=== PATIENT | female | born 1970 | race Caucasian/White ===

== ENCOUNTER 2016-08-26 09:19 | Outpatient (CLI) | payer MEDICAID | END 2016-08-26 09:20 | disposition home or self-care (01) | DX: I10 Essential (primary) hypertension (principal) ==

== ENCOUNTER 2016-12-04 11:49 | Emergency (ER) | payer MEDICAID ==
[2016-12-04 12:02] VITALS: BP 136/91
[2016-12-04] MEDS ORDERED: AMOX/CLAV 875 MG/125 MG TABLET PO STA (12:19)
[2016-12-04] MEDS ORDERED: AMOX/CLAV 875 MG/125 MG TABLET PO ONE (12:21)
--- NOTE | 2016-12-04 12:22 | ED Physician Documentation ---
PD HPI ANIMAL BITE - Stated complaint Stated Complaint: CAT BITE - Chief complaint Chief Complaint: Wound - History obtained from History obtained from: Patient, Family - History of Present Illness Location of injury(ies): Left hand Details of the event: Cat, Bite, Scratch, Pet animal, Immunized Timing - onset: Last night Timing - duration: Days (1) Timing - details: Abrupt onset Pain level max: 4 Pain level now: 4 Improved by: Rest Worsened by: Moving, Palpating Associated symptoms: Swelling. No: Weakness, Numbness, Tingling Contributing factors: No: Immunocompromised, Asplenic, Anticoagulated, Un/under immunized Similar symptoms before: Has not had sx before Recently seen: Not recently seen Review of Systems Constitutional: denies: Fever, Chills GI: denies: Nausea, Vomiting, Diarrhea (r) Skin: denies: Rash Musculoskeletal: denies: Neck pain, Back pain Neurologic: denies: Headache PD PAST MEDICAL HISTORY - Past Medical History Past Medical History: Yes Cardiovascular: None Respiratory: None, Other Neuro: None Endocrine/Autoimmune: None GI: None DRAPERY MAKER: Fibroids : Kidney stones HEENT: None Psych: None Musculoskeletal: None Derm: None - Past Surgical History Past Surgical History: No Ortho: Arthroscopic surgery - Present Medications Home Medications: Ambulatory Orders Medication Instructions Recorded Confirmed Lisinopril 20 mg PO DAILY 09/16/14 12/04/16 Amox/Clav 875/125 [Augmentin] 1 each PO Q12H #14 tablet 12/04/16 Loratadine [Allergy] 10 mg PO DAILY 12/04/16 12/04/16 Spironolactone 25 mg PO DAILY 12/04/16 12/04/16 - Allergies Allergies/Adverse Reactions: Allergies Allergy/AdvReac Type Severity Reaction Status Date / Time narcotics AdvReac Dizziness Uncoded 12/04/16 12:02 - Social History Does the pt smoke?: No Smoking Status: Never smoker Does the pt drink ETOH?: No Does the pt have substance abuse?: No - Immunizations Immunizations are current?: Yes - POLST Patient has POLST: No PD ED PE NORMAL - Vitals Vital signs reviewed: Yes - General General: Alert and oriented X 3, No acute distress - HEENT HEENT: Moist mucous membranes - Neck Neck: Supple, no meningeal sign - Cardiac Cardiac: RRR - Respiratory Respiratory: No respiratory distress, Clear bilaterally - Abdomen Abdomen: Soft, Non tender - Derm Derm: Warm and dry - Extremities Extremities: Other (L hand - dorsum swollen with erythema. no drainage. erythema and swelling cover the dorsum of the hand.) - Neuro Neuro: Alert and oriented X 3 - Psych Psych: Normal mood, Normal affect Results - Vitals Vitals: Vital Signs - 24 hr 12/04/16 11:59 Temperature 36.4 C L Heart Rate 89 Respiratory 15 Rate Blood Pressure 136/91 H O2 Saturation 99 Oxygen O2 Source Room air PD MEDICAL DECISION MAKING - ED course Complexity details: considered differential, d/w patient ED course: Patient is a 46-year-old female who presents to the emergency department after a cat bite to the left hand last night. Has swelling and erythema to the dorsum of the hand. No palmar tenderness. No phlebitis.Will place on antibiotics and close follow-up. Patient counseled regarding signs and symptoms for which I believe and urgent re-evaluation would be necessary. Patient with good understanding of and agreement to plan and is comfortable going home at this time This document was made in part using voice recognition software. While efforts are made to proofread this document, sound alike and grammatical errors may occur. Departure - Departure Disposition: 01 Home, Self Care Clinical Impression: Animal bite Cellulitis Qualifiers: Site of cellulitis: extremity Site of cellulitis of extremity: lower extremity Laterality: left Qualified Code(s): L03.116 - Cellulitis of left lower limb Condition: Good Instructions: ED Bite Animal General, ED Infec Skin Cellulitis Follow-Up: Romulo Hall MD [Primary Care Provider] - Within 3 Days (for wound check) Prescriptions: Amox/Clav 875/125 [Augmentin] 1 each PO Q12H #14 tablet Comments: Return if you worsen. Take all antibiotics until gone. Discharge Date/Time: 12/04/16 12:31
== END 2016-12-04 12:31 | disposition home or self-care (01) ==
LOC: ED 11:49
DX: S61.452A Open bite of left hand, initial encounter (principal); L03.114 Cellulitis of left upper limb; W55.01XA Bitten by cat, initial encounter
CPT/HCPCS: 99283; A9270

== ENCOUNTER 2018-03-25 09:56 | Outpatient (CLI) | payer MEDICAID ==
[2018-03-25 13:44] LABS: BASOPHILS % (AUTO) 0.2 %; EOSINOPHILS # (AUTO) 0.4 10^3/uL (0.0-0.7); EOSINOPHILS % (AUTO) 5.9 %; HGB - HEMOGLOBIN 14.3 g/dL (12.0-16.0); LYMPHOCYTES # (AUTO) 3.1 10^3/uL (1.5-3.5); LYMPHOCYTES % (AUTO) 40.6 %; MEAN CORPUSCULAR HEMOGLOBIN 29.5 pg (27.0-31.0); MEAN CORPUSCULAR HGB CONC 34.1 g/dL (32.0-36.0); MEAN CORPUSCULAR VOLUME 86.5 fL (81.0-99.0); MEAN PLATELET VOLUME 9.1 fL (7.9-10.8); MONOCYTES # (AUTO) 0.4 10^3/uL (0.0-1.0); MONOCYTES % (AUTO) 5.1 %; NEUTROPHILS # (AUTO) 3.6 10^3/uL (1.5-6.6); NEUTROPHILS % (AUTO) 48.2 %; PLT - PLATELET COUNT 325 10^3/uL (130-450); RED BLOOD COUNT 4.83 10^6/uL (4.20-5.40); RED CELL DISTRIBUTION WIDTH 14.4 % (12.0-15.0); WHITE BLOOD COUNT 7.6 x10^3/uL (4.8-10.8)
[2018-03-25 13:56] LABS: ALBUMIN 4.4 g/dL (3.2-5.5); ALBUMIN/GLOBULIN RATIO 1.2 (1.0-2.2); BILIRUBIN,TOTAL 1.8 mg/dL (0.2-1.0); CALCIUM 9.6 mg/dL (8.5-10.3); CREATININE 0.8 mg/dL (0.4-1.0); TOTAL PROTEIN 8.1 g/dL (6.7-8.2)
== END 2018-03-25 09:57 | disposition home or self-care (01) ==
LOC: LAB.N 09:56
PROVIDERS: ATTEND Family Medicine
DX: N94.6 Dysmenorrhea, unspecified (principal); F33.0 Major depressive disorder, recurrent, mild; I10 Essential (primary) hypertension
CPT/HCPCS: 36415; 80053; 85025

== ENCOUNTER 2018-04-02 13:29 | Outpatient (CLI) | payer SELFPAY ==
[2018-04-02 19:12] LABS: BILIRUBIN,URINE NEGATIVE (NEGATIVE); GLUCOSE, URINE (UA) NEGATIVE (NEGATIVE); KETONES,URINE (UA) NEGATIVE (NEGATIVE); LEUKOCYTE ESTERASE, URINE NEGATIVE (NEGATIVE); NITRITE,URINE NEGATIVE (NEGATIVE); OCCULT BLOOD,URINE NEGATIVE (NEGATIVE); PH,URINE 6.5 PH (5.0-7.5); PROTEIN,URINE NEGATIVE (NEGATIVE); UROBILINOGEN,URINE 0.2 (NORMAL) E.U./dL (NORMAL)
[2018-04-02 19:50] LABS: BACTERIA,URINE None Seen /HPF (None Seen); CLARITY,URINE CLEAR (CLEAR); RBC,URINE 0-5 /HPF (0-5); SQUAMOUS EPITHELIAL CELL,UR NONE SEEN (<= Few)
== END 2018-04-02 23:59 | disposition home or self-care (01) ==
LOC: LAB.R 13:29
PROVIDERS: ATTEND Family Medicine
DX: N39.0 Urinary tract infection, site not specified (principal)
CPT/HCPCS: 81001; 87086